=== PATIENT | female | born 1950 | race Caucasian/White ===

== ENCOUNTER → 2017-05-01 | Outpatient (CLI) | payer BC ==
[~2017-05-01] MED LIST: ALBUTEROL17 GM INH; ALDACTONE PO; APRESOLINE PO; ASTELIN137 MCG INH; COREG PO; COREG12.5 MG PO; EVISTA60 M1 PO; EVISTA60 MG; LASIX PO; LEVAQUIN PO; LEVSIN PO; LIPITOR PO; LISINOPRIL PO; NULEV; PAXIL PO; PROTONIX PO; TRICOR; TRILIPIX; TUSSIONEX PENN473 ML PO; ULTRAM PO; VIBRAMYCIN100 M1 PO; WALGREENS PHARMACY; ZITHROMAX PO
--- NOTE | ~2017-05-01 | CT4 ---
[facility] A Service of [facility] RADIOLOGY TEXT RESULTS PATIENT: REBECCA LANGLEY LOCATION: [facility] : 50 UNIT #: [id number] AGE: [address]: CLAU MCGHEE SEX: F ORDER DR: [id number] [place], [place] [address] [id number] MR#: [id number] Acc #: [id number] NAME: REBECCA LANGLEY : 1950 SEX: F STUDY DATE/TIME: 05/01/2017 10:13 UNIT: [facility] ROOM: STUDY DESCRIPTION: CT Abd and Pelv Wo Cont Attending Physician: Clau Mcghee Aprn Referring Physician: Clau Mcghee Aprn Ordering Physician: Clau Mcghee Aprn Primary Care Physician: Diogo Santana M.D. MEDICAL IMAGING REPORT This report is preliminary unless electronic signature is present EXAM CT abdomen and pelvis without contrast INDICATION Microscopic hematuria since 04/28/2017. PROCEDURE Unenhanced CT of the abdomen and pelvis. This CT exam was performed with one or more of the following radiation dose reduction techniques: automatic exposure control, adjustment of mA and/or kV according to patient size, and iterative reconstruction. COMPARISON 03/29/2006 FINDINGS ABDOMEN WITHOUT CONTRAST: Linear scarring in the left lower lobe. Liver, spleen, adrenal glands, pancreas and gallbladder unremarkable. Bowel loops are nondilated. 10.0 mm nonobstructing calculus in the lower pole of the left kidney. 4.0 mm calculus in the distal left ureter. There is no significant hydronephrosis. Indeterminate 1.9 cm lesion in the upper pole of the right kidney. 1.4 cm cyst lower pole left kidney. PELVIS WITHOUT CONTRAST: No pelvic mass or fluid. No radiodense bladder calculus. No aggressive appearing bone lesion. IMPRESSION 1. 4.0 mm calculus in the distal left ureter. No hydronephrosis. 2. 10.0 mm nonobstructing calculus in the lower pole of the left kidney. [facility] A Service [facility] RADIOLOGY TEXT RESULTS PATIENT: REBECCA LANGLEY LOCATION: [facility] : 50 UNIT #: [id number] AGE: [address]: CLAU MCGHEE SEX: F ORDER DR: 3. 1.9 cm indeterminate lesion in the upper pole of the right kidney. It measured approximately 1.3 cm on the 2006 CT and is favored to represent a benign proteinaceous or hemorrhagic cyst. Consider renal ultrasound for confirmation. Dictated by... Nahid Verdin M.D. THIS IS AN ELECTRONICALLY VERIFIED REPORT Nahid Verdin M.D. at 05/04/2017 8:50 AM Ernestina TD: 05/01/2017 15:15 JOB #: [id number] MEDICAL IMAGING REPORT Page 1 of 1 COPY
== END | disposition home or self-care (01) ==
LOC: CCAT 09:44
DX: R35.0 Frequency of micturition (principal); R82.99 Other abnormal findings in urine; N20.2 Calculus of kidney with calculus of ureter
CPT/HCPCS: 74176